=== PATIENT | female | born 1990 | race Caucasian/White ===

== ENCOUNTER 2021-05-25 01:57 | Emergency (ER) | payer OTHER, MEDICAID, SELFPAY ==
[2021-05-25 02:23] VITALS: BP 134/79; PULSE 73; RESP 18; TEMP 36.7; O2SAT 99; BMI 24.7
--- NOTE | 2021-05-25 02:43 | ED.BACK ---
HPI - Back Pain/Injury General Chief Complaint: Back Pain/Injury Stated Complaint: back pain hurt back last week Time Seen by Provider: 05/25/21 02:37 Source: patient Limitations: no limitations History of Present Illness HPI Narrative: This is a 31-year-old female comes in with complaint of low back pain. Patient states that she hurt her back twisting and a weird manner while putting away a shopping cart. She states she has had chronic sciatica down her right leg. She has had issues for several years up to a decade after falling down some stairs landing on her buttocks bleeding onset fiber 6 stairs. Her pain has been significantly worse the last several days. This most recent episode started on Monday. She denies any numbness or tingling, she denies any loss of bowel or bladder control, no saddle anesthesia. No fevers or chills. No chest pain or shortness of breath, no nausea or vomiting. She has not had any diarrhea constipation. She has not any rashes or skin changes. Patient notes that the pain does radiate from her right buttock down her leg. Movement does make it worse. 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 She does not have any other daily medications. She does vape, she drinks alcohol occasionally does use marijuana. She denies any prior back interventions or surgical interventions. Related Data Previous Rx's Medication Instructions Recorded cyclobenzaprine 10 mg tablet 10 mg PO TID PRN #10 tab 05/25/21 meloxicam 7.5 mg tablet 7.5 mg PO BID PRN #10 tab 05/25/21 prednisone 20 mg tablet 40 mg PO DAILY 4 Days #8 tab 05/25/21 Allergies Allergy/AdvReac Type Severity Reaction Status Date / Time amoxicillin Allergy Intermediate Hives Verified 05/25/21 02:23 azithromycin Allergy Intermediate Hives Verified 05/25/21 02:23 Sulfa (Sulfonamide Allergy Intermediate Hives Verified 05/25/21 02:23 Antibiotics) Review of Systems Review of Systems ROS Unobtainable: All systems reviewed & are unremarkable except as noted in HPI and below Patient History Social History Smoking Status: Current every day smoker Smoking Status: Current every day smoker tobacco type: vaping alcohol intake frequency: 0-2 drinks per day Substance Use Type: marijuana Exam Narrative Exam Narrative: GENERAL: Alert and oriented x three, thin female in mild to moderate distress. HEENT: Head normocephalic, atraumatic, EOMI, pupils reactive, face symmetric, moist mucous membranes NECK: Supple, full range of motion CARDIOVASCULAR: Regular rate and rhythm without murmurs, rubs or gallops. RESPIRATORY: Breath sounds equal bilaterally, no wheezes rales or rhonchi. ABDOMEN: Soft, nontender. Normoactive bowel sounds all 4 quadrants. No guarding or rebound, rigidity, no mass : No CVA tenderness BACK: No cervical, thoracic or lumbar vertebral point tenderness. Patient has normal range of motion. Patient's gait is normal. Rectal exam is deferred. Muscle strength is 5/5 in lower extremities, DTRs are 2/4 and lower extremities. Dorsalis pedis and tibialis pulses are 2+ and lower extremities. Sensation is intact in the lower extremities. EXTREMITIES: Normal range of motion, no edema. Neurovascularly intact. 2+ pulses bilateral lower extremities. NEUROLOGICAL: Cranial nerves II through XII grossly intact. Moving all extremities SKIN: Warm, dry, no petechiae, no rashes or lesions. Initial Vital Signs Initial Vital Signs: Vital Signs Temperature 98.1 F 05/25/21 02:23 Pulse Rate 73 05/25/21 02:23 Respiratory Rate 18 05/25/21 02:23 Blood Pressure 134/79 05/25/21 02:23 Pulse Oximetry 99 05/25/21 02:23 Course Orders Ordered: ED Orders 05/25/21 02:56 XR lumbar spine 2-3V Stat Discontinued Medications Cyclobenzaprine HCl (Cyclobenzaprine 10 Mg Prepack) 1 bottle MISC SEEINSTR ONE Stop: 05/25/21 03:45 Last Admin: 05/25/21 03:54 Dose: 1 bottle Documented by: NISHANT Ketorolac Tromethamine (Ketorolac 30 Mg/Ml Vial) 30 mg IM NOW ONE Stop: 05/25/21 02:56 Last Admin: 05/25/21 03:12 Dose: 30 mg Documented by: NISHANT Prednisone (Prednisone 20 Mg Tablet) 60 mg PO NOW ONE Stop: 05/25/21 02:56 Last Admin: 05/25/21 03:12 Dose: 60 mg Documented by: NISHANT Reevaluation(s) Reevaluation #1: Patient still has some pain but has improved. She is sitting cross-legged on the bed and able to get off the bed easily without any issue. Patient did drive herself so was given Flexeril prepack. Discussed return precautions. Prescriptions for pain as well as steroid. Time: 03:49 Vital Signs Vital signs: Vital Signs - 8 hr 05/25/21 02:23 05/25/21 03:57 Temperature 98.1 F Pulse Rate 73 64 Respiratory Rate 18 16 Blood Pressure 134/79 124/74 Pulse Oximetry 99 99 MDM - Back Pain/Injury Imaging Data Lspine xray: My Impression: prelim-nap. Radiologist's Impression: Multilevel degenerative changes of the endplates. No acute traumatic injury noted. [facility] Narrative Medical decision making narrative: This is a 31-year-old female with acute on chronic back pain sciatica with a mild injury or twisting typical while returning shopping cart. Patient had some improvement with Toradol here. Her exam and evaluation do not show any red flag symptoms. She has never had imaging so L-spine CT x-ray was obtained which shows some mild endplate changes. Return precautions discussed. Prescription was given for NSAID pain medication, short course of staring and so relaxers. Discharge Plan Departure Patient Disposition: Home Clinical Impression: Sciatica Instructions: DI for Back Pain With Sciatica Activity Restrictions/Additional Instructions: Follow-up with primary care or pain management in the next 1-2 weeks for recheck. Referral is included. You may take meloxicam 1 tablet every 12 hours as needed. You may take prednisone 1 tablet daily until gone. Take muscle relaxer 1 tablet every 8 hours as needed for muscle relaxation. Prescription sent to [facility] in [place]. Please return for fevers, rapidly worsening pain, new numbness, tingling or weakness in your extremities, loss of bowel or bladder control, noted walk, move her extremity or other new or concerning symptoms. Prescriptions: New meloxicam 7.5 mg tablet 7.5 mg PO BID PRN (Reason: pain) Qty: 10 RF: 0 prednisone 20 mg tablet 40 mg PO DAILY 4 Days Qty: 8 RF: 0 cyclobenzaprine 10 mg tablet 10 mg PO TID PRN (Reason: muscle spasm) Qty: 10 RF: 0
--- NOTE | 2021-05-25 02:56 | DI.RAD.S_ITS ---
PROCEDURE: XR LUMBAR SPINE 2-3V INDICATIONS: low back pain, left sciatica. acute on chronic TECHNIQUE: 3 views of the lumbar spine were acquired. COMPARISON: None. FINDINGS: Bones: Minimal levocurvature. No fracture. Multilevel degenerative endplate sclerosis and spurring. Diffuse facet arthropathy. Diffuse mild narrowing of the lumbar disc spaces. Soft tissues: Overlying bowel gas pattern is normal. No suspicious soft tissue calcifications. IMPRESSION: Mild diffuse lumbar spondylosis and facet arthropathy. Minimal levocurvature Dictated by: Farhat Lora M.D. on 05/25/2021 at 8:04 Approved by: Farhat Lora M.D. on 05/25/2021 at 8:04
[2021-05-25] MEDS: KETOROLAC 30 MG/ML VIAL IM (03:12)
[2021-05-25] MEDS: predniSONE 20 MG TABLET 60 MG PO (03:12)
[2021-05-25] MEDS: CYCLOBENZAPRINE 10 MG PREPACK 1 BOTTLE MISC (03:54)
[2021-05-25 03:57] VITALS: BP 124/74; PULSE 64; RESP 16; O2SAT 99
== END 2021-05-25 03:57 | disposition home or self-care (01) ==
PROVIDERS: Emergency Provider Emergency Medicine
DX: M54.30 Sciatica, unspecified side (principal)
CPT/HCPCS: 72100; 96372; 99283; 99284; J1885

== ENCOUNTER 2021-06-03 18:02 | Emergency (ER) | payer OTHER, MEDICAID, SELFPAY ==
[2021-06-03 18:24] VITALS: BP 140/90; PULSE 121; RESP 20; TEMP 36.4; O2SAT 97; BMI 24.7
--- NOTE | 2021-06-03 21:24 | ED_ITS ---
HPI - Neuro Symptoms/Deficit General Chief Complaint: Neuro Symptoms/Deficit Stated Complaint: Sciatica, Numbness in Right Leg Time Seen by Provider: 06/03/21 21:12 Source: patient Mode of arrival: Ambulatory Limitations: physical limitation History of Present Illness HPI Narrative: 31-year-old female comes emergency department with complaint of left lower extremity pain and now new numbness and sensation change. Patient was seen by myself on the 25 of May. She had a twisting motion seem to exacerbate her symptoms. She states her pain although present is not as intense as before. She actually defers anything for pain medication. She has noticed that this sensation feels different in her left leg in comparison to her right she has had normal range of motion she denies fevers or chills. She denies any new changes to gait. No saddle anesthesia. She denies any erythema or skin changes to the back. Patient was on anti-inflammatories and Flexeril with some improvement in pain. She has not set up follow-up yet. On Anticoagulants: No Related Data Previous Rx's Medication Instructions Recorded cyclobenzaprine 10 mg tablet 10 mg PO TID PRN #10 tab 05/25/21 meloxicam 7.5 mg tablet 7.5 mg PO BID PRN #10 tab 05/25/21 gabapentin 300 mg capsule 300 mg PO TID #30 cap 06/03/21 (Neurontin) Allergies Allergy/AdvReac Type Severity Reaction Status Date / Time amoxicillin Allergy Intermediate Hives Verified 05/25/21 02:23 azithromycin Allergy Intermediate Hives Verified 05/25/21 02:23 Sulfa (Sulfonamide Allergy Intermediate Hives Verified 05/25/21 02:23 Antibiotics) Review of Systems Review of Systems ROS Unobtainable: All systems reviewed & are unremarkable except as noted in HPI and below Hematologic/Lymphatic On Anticoagulants: No Patient History Social History Smoking Status: Current every day smoker Smoking Status: Current every day smoker tobacco type: vaping alcohol intake frequency: holidays/special occasions only Substance Use Type: marijuana Exam Narrative Exam Narrative: GENERAL: Alert and oriented x three, patient in mild distress. HEENT: Head normocephalic, atraumatic, EOMI, pupils reactive, face symmetric, moist mucous membranes NECK: Supple, full range of motion CARDIOVASCULAR: Regular rate and rhythm without murmurs, rubs or gallops. RESPIRATORY: Breath sounds equal bilaterally, no wheezes rales or rhonchi. ABDOMEN: Soft, nontender. Normoactive bowel sounds all 4 quadrants. No guarding or rebound, rigidity, no mass : No CVA tenderness BACK: No cervical, thoracic or lumbar vertebral point tenderness. Patient has normal range of motion. Patient's gait is normal. Rectal exam is normal, no saddle anesthesia on exam. Muscle strength is 5/5 in lower extremities, DTRs are 2/4 and lower extremities. Dorsalis pedis and tibialis pulses are 2+ and lower extremities. Sensation is present bilateral lower extremities but she does have some change in sensation left in compared to the right particularly over dermatome L5 and S1 with sharp testing. EXTREMITIES: Normal range of motion, no clubbing or edema. Neurovascularly intact NEUROLOGICAL: Cranial nerves II through XII grossly intact. Moving all extremities SKIN: Warm, dry, no petechiae, no rashes or lesions. Initial Vital Signs Initial Vital Signs: Vital Signs Temperature 97.5 F L 06/03/21 18:24 Pulse Rate 121 H 06/03/21 18:24 Respiratory Rate 20 06/03/21 18:24 Blood Pressure 140/90 06/03/21 18:24 Pulse Oximetry 97 06/03/21 18:24 Course Vital Signs Vital signs: Vital Signs - 8 hr 06/03/21 21:59 Pulse Rate 88 Respiratory Rate 15 Blood Pressure 154/82 H Pulse Oximetry 97 MDM - Neuro Symptoms/Deficit Imaging Data lumbar xray: Radiologist's Impression: [address] [id number] XRay Report Signed Patient: Subhash Bains MR#: [id number] : 1990 Acct:[id number] Age/Sex: 31 / F Date of Service: 05/25/21 Loc: ED Accession Number: [id number] ?? Procedure: XR lumbar spine 2-3V Ordering Provider: Mandy Marsh D.O. PROCEDURE:? XR LUMBAR SPINE 2-3V ? INDICATIONS:? low back pain, left sciatica. acute on chronic ? TECHNIQUE:? 3 views of the lumbar spine were acquired.? ? COMPARISON:? None. ? FINDINGS:? ? Bones:? Minimal levocurvature.? No fracture. Multilevel degenerative endplate sclerosis and spurring.? Diffuse facet arthropathy.? Diffuse mild narrowing of the lumbar disc spaces. ? Soft tissues:? Overlying bowel gas pattern is normal.? No suspicious soft tissue calcifications.? ? ? IMPRESSION:? Mild diffuse lumbar spondylosis and facet arthropathy. ? Minimal levocurvature ? Dictated by: Farhat Lora M.D. on 05/25/2021 at 8:04 ? ? Approved by: Farhat Lora M.D. on 05/25/2021 at 8:04?? MDM Narrative Medical decision making narrative: 31-year-old female with complaint of left paresthesias. Patient on prior visit was complaining of pain on the right. Patient initially states that pain was in same location with no change in region but prior chart documented by myself states right and patient on exam indiciates left side is location with issue and is same side. Patient defers any pain medication here in the department. We discussed trying medication for neuropathic pain and was given prescription for Neurontin as well as referral to follow-up with orthopedic surgery. Return precautions and red flag symptoms were discussed patient is not exhibiting any of these today. Discharge Plan Departure Patient Disposition: Home Clinical Impression: Left lumbar radiculopathy Instructions: DI for Lumbar Radiculopathy Activity Restrictions/Additional Instructions: Follow-up with orthopedic surgery. Referral is included below. Please call tomorrow morning for an appointment. You do appear to have a radiculopathy. You may try Neurontin or add gabapentin this may be helpful for pain but will not necessarily change or sensation symptoms in your leg. You may continue with anti-inflammatories for pain as needed. Prescription sent to [facility]. Please return for rapidly worsening symptoms, worsening pain, new sensation changes, loss of sensation in your groin, loss of bowel or bladder control, inability to lift or move your leg or other new or concerning symptoms. Prescriptions: New gabapentin [Neurontin] 300 mg capsule 300 mg PO TID Qty: 30 RF: 0 No Action meloxicam 7.5 mg tablet 7.5 mg PO BID PRN (Reason: pain) Qty: 10 RF: 0 cyclobenzaprine 10 mg tablet 10 mg PO TID PRN (Reason: muscle spasm) Qty: 10 RF: 0 Referrals: Diamante Brown MD [Physician] - Chencho Ruvalcaba MD [Physician] -
[2021-06-03 21:59] VITALS: BP 154/82; PULSE 88; RESP 15; O2SAT 97
== END 2021-06-03 22:01 | disposition home or self-care (01) ==
PROVIDERS: Emergency Provider Emergency Medicine
DX: M54.16 Radiculopathy, lumbar region (principal)
CPT/HCPCS: 99281

== ENCOUNTER → 2023-04-04 12:46 | Outpatient (CLI) | payer OTHER, MEDICAID, SELFPAY ==
--- NOTE | 2023-04-04 | DI.RAD.S_ITS ---
Bone Density Report Name: FRANCESCO HUERTA Age: 33 Sex: Female Ethnicity: White Date of : 1990 Indication: [employer] Referring Provider: EDELMIRA SEVILLA Study: Bone densitometry was performed. Exam Date: April 04, 2023 Accession number: [id number] Bone Density: Region BMD T-score Z-score Classification AP Spine(L1-L4) 1.007 -0.4 Femoral Neck (Left) 0.799 -0.3 Total Hip (Left) 0.967 0.2 Femoral Neck (Right) 0.856 0.2 Total Hip (Right) 1.023 0.7 Total Hip Mean 0.995 0.5 World Health Organization criteria for BMD impression classify patients as: Normal (T-score at or above -1.0), Osteopenia (T-score between -1.0 and -2.5), or Osteoporosis (T-score at or below -2.5). Impression: The patient's bone mass is within expected range for age, gender and ethnicity. Discussion: BONE DENSITY IS WITHIN EXPECTED LIMITS FOR AGE, SEX AND RACE. Bone density is within expected limits for age, sex and race at all sites measured. The patient should follow a healthful lifestyle (good nutrition with adequate calcium and vitamin D, and appropriate weight-bearing exercise). Follow-Up: Consider repeating this study in 5 years or sooner if there is some new clinical indication. Reported by: SHELLY GASTELUM MD on 04/04/2023 1:09:00 PM.
== END ==
PROVIDERS: PCP Family Medicine; Referring Provider Nurse Practitioner Family; Visit Provider Nurse Practitioner Family
DX: Z79.3 Long term (current) use of hormonal contraceptives (principal)
CPT/HCPCS: 77080

== ENCOUNTER 2024-04-16 19:51 | Emergency (ER) | payer OTHER, MEDICAID, SELFPAY ==
[2024-04-16 19:57] VITALS: BP 136/68; PULSE 90; RESP 12; TEMP 37; O2SAT 99; BMI 30.1
--- NOTE | 2024-04-16 20:25 | ED_ITS ---
HPI - Back Pain/Injury General Chief Complaint: Back Pain/Injury Stated Complaint: sciatica px Time Seen by Provider: 04/16/24 19:55 Source: patient Mode of arrival: EMS Limitations: no limitations History of Present Illness HPI Narrative: Patient is a 34-year-old female here for evaluation of low back discomfort. She has had issues with low back pain in the past but states last evening she went to bed without any problems. When she woke up this morning she had some discomfort in lower back and then when she was bending over to pick something up she had a sudden increase in discomfort. It is both sides. Does not radiate to her legs. No fevers. No change in urinary symptoms or bowel changes. She did receive 30 mg of IM Toradol by EMS prior to arrival. No recent procedures. Related Data Home Medications Medication Instructions Recorded Confirmed albuterol sulfate 90 mcg/actuation 2 inh inhalation Q6H PRN 07/20/21 09/03/21 breath activated powder inhaler fluticasone propionate 44 2 puff inhalation BID 07/20/21 09/03/21 mcg/actuation HFA aerosol inhaler (Flovent HFA) medroxyprogesterone 150 mg/mL 150 mg IM [id number] 07/20/21 09/03/21 intramuscular syringe (Depo-Provera) methadone PO 07/20/21 09/03/21 Previous Rx's Medication Instructions Recorded cyclobenzaprine 10 mg tablet 10 mg PO TID PRN muscle spasm #10 05/25/21 tabs meloxicam 7.5 mg tablet 7.5 mg PO BID PRN pain #10 tabs 05/25/21 gabapentin 300 mg capsule 300 mg PO TID #30 caps 06/03/21 (Neurontin) cyclobenzaprine 10 mg tablet 10 mg PO TID PRN muscle spasm #20 04/16/24 tabs methylprednisolone 4 mg tablets in See Rx Instructions PO .COMPLEX 04/16/24 a dose pack (Medrol (Agustin)) #21 ea Allergies Allergy/AdvReac Type Severity Reaction Status Date / Time amoxicillin Allergy Intermediate Hives Verified 09/03/21 15:58 azithromycin Allergy Intermediate Hives Verified 09/03/21 15:58 Sulfa (Sulfonamide Allergy Intermediate Hives Verified 09/03/21 15:58 Antibiotics) Review of Systems Review of Systems Narrative: See HPI Patient History Medical History Asthma (~2002) Chicken pox Gastric ulcer Stomach cancer (~2009) Somatic dysfunction of lower extremity Sacral region somatic dysfunction Pelvic somatic dysfunction Segmental and somatic dysfunction of abdomen and other regions Lumbar region somatic dysfunction Acute right-sided low back pain with left-sided sciatica Methadone maintenance therapy patient Hx of substance abuse Surgical History (Updated 09/01/21 @ 20:07 by Radha Ho) Anesthesia [place] teeth removed History of placement of ear tubes History of tonsillectomy and adenoidectomy Family History (Updated 09/01/21 @ 20:08 by Radha Ho) Mother Mental health problem Sister Seizures Grandfather History of heart disease Social History Smoking Status: Current every day smoker Smoking Status: Current every day smoker tobacco type: vaping alcohol intake frequency: holidays/special occasions only Substance Use Type: former substance user and marijuana Exam Initial Vital Signs Initial Vital Signs: Vital Signs Temperature 98.6 F 04/16/24 19:57 Pulse Rate 90 04/16/24 19:57 Respiratory Rate 12 04/16/24 19:57 Blood Pressure 136/68 04/16/24 19:57 Pulse Oximetry 99 04/16/24 19:57 Oxygen Delivery Method Room Air 04/16/24 19:57 Const General: cooperative and No ill appearing HENMT Head: normal to inspection and normocephalic Resp Effort & Inspection: normal respiratory effort Cardio Rate: regular rate Skin General: no rashes or lesions noted Neuro General: patient alert, patient awake and moves all extremities Course Orders Ordered: Discontinued Medications Cyclobenzaprine HCl (Cyclobenzaprine 10 Mg Tablet) 10 mg PO NOW ONE Stop: 04/16/24 20:26 Last Admin: 04/16/24 20:36 Dose: 10 mg Documented By: AVIS Cyclobenzaprine HCl (Cyclobenzaprine 10 Mg Prepack) 1 bottle MISC DIRECTED ONE Stop: 04/16/24 21:14 Last Admin: 04/16/24 21:32 Dose: 1 bottle Documented By: AVIS Lidocaine (Lidocaine 5% Patch) 1 each TOP NOW ONE Stop: 04/16/24 20:37 Last Admin: 04/16/24 20:43 Dose: 1 each Documented By: AVIS Prednisone (Prednisone 20 Mg Tablet) 20 mg PO NOW ONE Stop: 04/16/24 20:26 Last Admin: 04/16/24 20:36 Dose: 20 mg Documented By: AVIS Vital Signs Vital signs: Vital Signs - 8 hr 04/16/24 19:57 04/16/24 21:42 Temperature 98.6 F Pulse Rate 90 88 Respiratory Rate 12 20 Blood Pressure 136/68 118/79 Pulse Oximetry 99 99 Oxygen Delivery Method Room Air Room Air MDM - Back Pain/Injury MDM Narrative Medical decision making narrative: Low suspicion for fracture, cauda equina, hematoma, abscess. Patient does have a history of opioid abuse. Is on methadone. Has been clean for 5 years. After her medications here in the emergency department she does report some improvement of symptoms. Will send home with a Medrol Dosepak. Also muscle relaxers. She can continue to take anti-inflammatories as needed. We will hold on any imaging studies for now. She was given return precautions and follow-up instructions. She expressed understanding and agreement with plan. Discharge Plan Departure Patient Disposition: Home Clinical Impression: Lower back pain Instructions: DI for Low Back Pain Activity Restrictions/Additional Instructions: I do recommend that you try to stay as active as possible. Continuing with the anti-inflammatory such as Motrin/Naprosyn. Heat and ice can be helpful as well along with light stretching. Contact your primary doctor for a follow-up. Prescriptions: New cyclobenzaprine 10 mg tablet 10 mg PO TID PRN (Reason: muscle spasm) Qty: 20 0RF methylprednisolone [Medrol (Agustin)] 4 mg tablets,dose pack See Rx Instructions .ROUTE .COMPLEX Qty: 21 0RF Rx Instructions: orally per package directions No Action medroxyprogesterone [Depo-Provera] 150 mg/mL syringe 150 mg IM [id number] methadone 70 mg PO Flovent HFA 44 mcg/actuation HFA aerosol inhaler 2 puff inhalation BID Rx Instructions: administer with spacer albuterol sulfate 90 mcg/actuation aerosol powdr breath activated 2 inh inhalation Q6H PRN meloxicam 7.5 mg tablet 7.5 mg PO BID PRN (Reason: pain) Qty: 10 0RF cyclobenzaprine 10 mg tablet 10 mg PO TID PRN (Reason: muscle spasm) Qty: 10 0RF gabapentin [Neurontin] 300 mg capsule 300 mg PO TID Qty: 30 0RF Referrals: Galen Watson DO [Primary Care Provider] - Stand Alone Forms: Patient Portal/API
[2024-04-16] MEDS: CYCLOBENZAPRINE 10 MG TABLET PO (20:36)
[2024-04-16] MEDS: predniSONE 20 MG TABLET PO (20:36)
[2024-04-16] MEDS: LIDOCAINE 5% PATCH 1 EACH TOP (20:43)
[2024-04-16] MEDS: CYCLOBENZAPRINE 10 MG PREPACK 1 BOTTLE MISC (21:32)
[2024-04-16 21:42] VITALS: BP 118/79; PULSE 88; RESP 20; O2SAT 99
== END 2024-04-16 21:38 | disposition home or self-care (01) ==
PROVIDERS: Emergency Provider Emergency Medicine; PCP Family Medicine
DX: M54.50 Low back pain, unspecified (principal)
CPT/HCPCS: 99283

== ENCOUNTER → 2024-10-07 14:56 | Outpatient (CLI) | payer OTHER, SELFPAY ==
--- NOTE | 2024-10-07 14:58 | DI.NM.S_ITS ---
PROCEDURE: NM EXERCISE TREADMILL NON NUC COMPARISON: None. INDICATIONS: palpitations FINDINGS: Patient exercised per the standard Rell protocol. Total exercise time was 12 minutes and 38 seconds. Test was terminated secondary to fatigue. Maximal heart rate obtained is 173 bpm which is 92% of max predicted heart rate. Maximum blood pressure [place] 156/[place] [address]. RASHI -30%. Maximum METS is 12.8. No ischemic changes noted. Frequent PVCs noted which did increase with stress. No ventricular tachycardia present. No chest pains voiced. Normal heart rate and blood pressure response to exercise. IMPRESSION: 1. Nondiagnostic exercise treadmill stress test for ischemia due to the presence of exercise-induced PVCs. 2. Above average exercise tolerance. Dictated by: Marquis Encinas M.D. on 10/07/2024 at 16:37 Approved by: Marquis Encinas M.D. on 10/07/2024 at 16:38
--- NOTE | 2024-10-07 14:58 | DI.ECHO.S_ITS ---
[facility] : : [address] : : [place] : : [id number] : : Phone: [phone] Echocardiogram Report + + :Name: FRANCESCO HUERTA Study Date: 10/07/2024 Height: 63 in : :[facility] ReadingLocation: Weight: 157 lb : : Gender: Female BSA: 1.7 m2 : :: 1990 Age: 34 yrs BP: 135/76 mmHg: :Reason For Study: PALPITATIONS : :Ordering Physician: MARGIE ENCINAS Performed By: Chris Lepe : :Referring: MARGIE ENCINAS : + + Interpretation Summary 1. The left ventricular contractility is normal. Estimate ejection fraction is greater than 55% with no segmental wall motion abnormalities. No LVH. Normal diastolic function. 2. The right ventricular contractility is normal. 3. All cardiac chambers are of normal size. Mobile intra-atrial septum without aneurysmal changes. 4. No significant valvular abnormalities. 5. No obvious intracardiac shunts. 6. No obvious intracardiac masses nor thrombi. 7. No hemodynamically significant pericardial effusion. 8. Low right-sided filling pressures. Conclusion: Normal biventricular function with no significant valvular nor structural abnormalities. Procedure: A two-dimensional transthoracic echocardiogram with color flow and Doppler was performed. The study quality was technically good. There is no prior echocardiogram noted for this patient. The patient was in normal sinus rhythm during the exam. Left Ventricle: The left ventricle is normal in size. There is normal left ventricular wall thickness. There is no ventricular septal defect visualized. The ejection fraction is estimated to be 55-60%. There are no focal wall motion abnormalities. Diastolic parameters suggest probable normal left ventricular diastolic function and normal filling pressures. Right Ventricle: The right ventricle is normal in size and function. Atria: The left atrial size is normal. Right atrial size is normal. There is no Doppler evidence for an atrial septal defect. Mitral Valve: The mitral valve leaflets appear normal. There is no evidence of stenosis, fluttering, or prolapse. There is no mitral regurgitation noted. Aortic Valve: The aortic valve is trileaflet. No aortic regurgitation is present. Tricuspid Valve: The tricuspid valve leaflets are thin and pliable. There is a trace or physiologic amount of tricuspid regurgitation. Pulmonic Valve: The pulmonic valve leaflets are thin and pliable; valve motion is normal. There is trace pulmonic regurgitation. Great Vessels: The aortic root is normal size. The dimensions of the ascending aorta are normal. The pulmonary artery is normal size. The IVC is of normal diameter and collapses greater than 50% with a sniff. This suggests a low right atrial pressure of 3 mm Hg. Pericardium/ Pleura There is no pericardial effusion. There is no pleural effusion. MMode/2D Measurements & Calculations LVIDd: 5.2 cm LVOT diam: 2.1 cm LVIDs: 3.5 cm Ao root diam: 2.7 cm FS: 32.5 % asc Aorta Diam: 2.9 cm EPSS: 0.70 cm Ao Arch Diam (Prox Trans): 1.6 cm IVSd: 0.79 cm LVPWd: 0.81 cm LV de la torre. diameter/BSA (cm/m^2): 3.0 LV sys. diameter/BSA (cm/m^2): 2.0 LA A2 area: 12.9 cm2 RA long axis: 4.2 cm LA A4 area: 16.2 cm2 RA area: 10.1 cm2 LA length (vol): 4.9 cm RA vol: 20.9 ml LA vol: 36.4 ml RA : 12.0 ml/m2 LA vol index: 20.9 ml/m2 IVC diam: 1.4 cm RVD1 (basal): 2.9 cm RVD2 (mid): 2.7 cm TAPSE: 2.3 cm Doppler Measurements & Calculations Ao V2 max: 153.4 cm/sec LVOT Max Guillaume: 131.8 cm/sec Ao V2 mean: 108.8 cm/sec LV V1 max P.9 mmHg Ao max P.4 mmHg LV V1 VTI: 29.2 cm Ao mean P.2 mmHg RODNEY(I,D): 3.2 cm2 Ao V2 VTI: 31.9 cm RODNEY(V,D): 3.0 cm2 sev ratio: 0.92 RODNEY indexed to BSA (cm^2/m^2): 1.8 MV E max guillaume: 121.9 cm/sec PA V2 max: 92.0 cm/sec MV A max guillaume: 52.1 cm/sec PA V2 mean: 73.6 cm/sec MV E/A: 2.3 PA mean P.3 mmHg Med Peak E' Guillaume: 16.7 cm/sec PA pr(Accel): 29.3 mmHg E/E' med: 7.3 Lat Peak E' Guillaume: 19.7 cm/sec E/E' lat: 6.2 E/e' average: 6.7 MV dec time: 0.24 sec SV(LVOT): 100.6 ml Reading Physician:TASHA
== END ==
PROVIDERS: PCP Family Medicine; Referring Provider Internal Medicine; Visit Provider Internal Medicine
DX: R00.2 Palpitations (principal)
CPT/HCPCS: 93017; 93306

== ENCOUNTER → 2025-05-15 16:03 | Outpatient (CLI) | payer OTHER, SELFPAY ==
--- NOTE | 2025-05-15 16:05 | DI.RAD.S_ITS ---
PROCEDURE: XR CHEST 2V INDICATIONS: wheezing, coughing and short of breath x 2 months TECHNIQUE: 2 views of the chest were acquired. COMPARISON: None. FINDINGS: Surgical changes and devices: None. Lungs and pleura: Lungs are clear. No pleural effusions or pneumothorax. Mediastinum: Mediastinal contours are normal. Heart size is normal. Bones and chest wall: No suspicious bony abnormalities. Soft tissues appear unremarkable. IMPRESSION: Clear lungs. Dictated by: Armin Desir M.D. on 05/15/2025 at 15:30 Approved by: Armin Desir M.D. on 05/15/2025 at 15:30
== END ==
LOC: RAD 16:05
PROVIDERS: PCP Family Medicine; Referring Provider Physician Assistant; Visit Provider Physician Assistant
DX: J45.901 Unspecified asthma with (acute) exacerbation (principal)
CPT/HCPCS: 71046